=== PATIENT | female | born 1965 | race Caucasian/White ===

== ENCOUNTER 2018-08-07 14:05 | Outpatient (CLI) | payer OTHER | END 2018-08-07 14:06 | disposition home or self-care (01) | LOC: BICMAMMO 14:05 | PROVIDERS: ATTEND Family Medicine | DX: Z12.31 Encounter for screening mammogram for malignant neoplasm of breast (principal); R92.1 Mammographic calcification found on diagnostic imaging of breast; Z80.3 Family history of malignant neoplasm of breast | CPT/HCPCS: 77063; 77067 ==

== ENCOUNTER 2019-08-14 10:01 | Outpatient (CLI) | payer OTHER ==
--- NOTE | 2019-08-14 15:13 | MMO ---
Bilateral MAMMO Bilat Screen [facility]. CLINICAL HISTORY: Patient is 53 years old and is seen for screening. The patient has the following family history of breast cancer: paternal aunt. The patient has no personal history of cancer. VIEWS: The views performed were: bilateral craniocaudal with tomosynthesis and bilateral mediolateral oblique with tomosynthesis. FILMS COMPARED: The present examination has been compared to prior imaging studies performed at [facility] on 08/07/2018, and at [facility] on 06/11/2015, 06/22/2016 and 07/26/2017. This study has been interpreted with the assistance of computer-aided detection. MAMMOGRAM FINDINGS: There are scattered fibroglandular densities. Benign calcifications are noted bilaterally. There are no suspicious masses, suspicious calcifications, or new areas of architectural distortion. IMPRESSION: THERE IS NO MAMMOGRAPHIC EVIDENCE OF MALIGNANCY. A ROUTINE FOLLOW-UP MAMMOGRAM IN 1 YEAR IS RECOMMENDED. THE RESULTS OF THIS EXAM WERE SENT TO THE PATIENT. ACR BI-RADS Category 2 - Benign finding MAMMOGRAPHY NOTE: 1. A negative mammogram report should not delay a biopsy if a dominant of clinically suspicious mass is present. 2. Approximately 10% to 15% of breast cancers are not detected by mammography. 3. Adenosis and dense breasts may obscure an underlying neoplasm. Reported by: EDWIN GARCIA MD Electonically Signed: [id number]
== END 2019-08-14 10:02 | disposition home or self-care (01) ==
LOC: BICMAMMO 10:01
PROVIDERS: ATTEND Family Medicine
DX: Z12.31 Encounter for screening mammogram for malignant neoplasm of breast (principal); Z80.3 Family history of malignant neoplasm of breast
CPT/HCPCS: 77063; 77067

== ENCOUNTER 2020-08-31 09:12 | Outpatient (CLI) | payer OTHER ==
--- NOTE | 2020-08-31 09:54 | MMO ---
Bilateral MAMMO Bilat Screen [facility]. CLINICAL HISTORY: Patient is 54 years old and is seen for screening. The patient has the following family history of breast cancer: paternal aunt, at age 52. The patient has no personal history of cancer. VIEWS: The views performed were: bilateral craniocaudal with tomosynthesis and bilateral mediolateral oblique with tomosynthesis. FILMS COMPARED: The present examination has been compared to prior imaging studies performed at [facility] on 08/07/2018 and 08/14/2019, and at [facility] on 06/22/2016 and 07/26/2017. This study has been interpreted with the assistance of computer-aided detection. MAMMOGRAM FINDINGS: There are scattered fibroglandular densities. Benign calcifications are noted bilaterally. There are no suspicious masses, suspicious calcifications, or new areas of architectural distortion. IMPRESSION: THERE IS NO MAMMOGRAPHIC EVIDENCE OF MALIGNANCY. A ROUTINE FOLLOW-UP MAMMOGRAM IN 1 YEAR IS RECOMMENDED. THE RESULTS OF THIS EXAM WERE SENT TO THE PATIENT. ACR BI-RADS Category 2 - Benign finding MAMMOGRAPHY NOTE: 1. A negative mammogram report should not delay a biopsy if a dominant of clinically suspicious mass is present. 2. Approximately 10% to 15% of breast cancers are not detected by mammography. 3. Adenosis and dense breasts may obscure an underlying neoplasm. Reported by: EDWIN GARCIA MD Electonically Signed: [id number]
== END 2020-08-31 09:13 | disposition home or self-care (01) ==
LOC: BICMAMMO 09:12
PROVIDERS: ATTEND Family Medicine
DX: Z12.31 Encounter for screening mammogram for malignant neoplasm of breast (principal); Z80.3 Family history of malignant neoplasm of breast
CPT/HCPCS: 77063; 77067

== ENCOUNTER 2021-09-17 09:07 | Outpatient (CLI) | payer OTHER | END 2021-09-17 09:08 | disposition home or self-care (01) | LOC: BICMAMMO 09:07 | PROVIDERS: ATTEND Family Medicine | DX: Z12.31 Encounter for screening mammogram for malignant neoplasm of breast (principal); Z80.3 Family history of malignant neoplasm of breast | CPT/HCPCS: 77063; 77067 ==

== ENCOUNTER 2021-11-17 08:42 | Outpatient (CLI) | payer OTHER | END 2021-11-17 08:43 | disposition home or self-care (01) | LOC: MRI 08:42 | PROVIDERS: ATTEND Orthopaedic Surgery | DX: M75.101 Unspecified rotator cuff tear or rupture of right shoulder, not specified as traumatic (principal); M75.31 Calcific tendinitis of right shoulder ==

== ENCOUNTER 2022-09-19 08:03 | Outpatient (CLI) | payer BC | END 2022-09-19 08:04 | disposition home or self-care (01) | LOC: BICMAMMO 08:03 | PROVIDERS: ATTEND Family Medicine | DX: Z12.31 Encounter for screening mammogram for malignant neoplasm of breast (principal); Z80.3 Family history of malignant neoplasm of breast | CPT/HCPCS: 77063; 77067 ==

== ENCOUNTER 2022-12-07 12:42 | Outpatient (CLI) | payer BC ==
[2022-12-07 14:03] LABS: ALT (SGPT) 34 U/L (8-55); AST (SGOT) 22 U/L (5-34); Albumin 4.3 g/dL (3.5-5.0); Alkaline Phosphatase 101 U/L (40-110); Anion Gap 15 mmol/L (10-20); BUN (Urea Nitrogen) 20 mg/dL (9.8-20.1); Bilirubin, Total 0.3 mg/dL (0.2-1.2); Calc. Creatinine Clearance 0 mL/min (70-130); Calcium 10.2 mg/dL (7.8-10.44); Carbon Dioxide 25 mmol/L (22-29); Chloride 104 mmol/L (98-107); Estimated GFR 100; Globulin 2.6 g/dL (2.4-3.5); Glucose 160 mg/dL (70-105); Potassium 4.9 mmol/L (3.5-5.1); Protein, Total 6.9 g/dL (6.0-8.3); Sodium 139 mmol/L (136-145)
== END 2022-12-07 12:43 | disposition home or self-care (01) ==
LOC: LABBT 12:42
PROVIDERS: ATTEND Internal Medicine Cardiovascular Disease
DX: Z01.812 Encounter for preprocedural laboratory examination (principal); R07.9 Chest pain, unspecified
CPT/HCPCS: 80053

== ENCOUNTER 2022-12-09 08:05 | Day surgery (SDC) | payer BC ==
[2022-12-08 10:20] VITALS: BMI 39.1
[2022-12-09] MEDS ORDERED: Lidocaine 1% PF 5 ML VIAL ONE (08:59)
[2022-12-09] MEDS ORDERED: Nitroglycerin 100MG/250ML BOT 250 ML ONE (09:18)
[2022-12-09] MEDS ORDERED: Heparin 10,000 UNITS/ 10 ML VIAL ONE (09:18)
[2022-12-09] MEDS ORDERED: Verapamil 5 MG/2 ML VIAL ONE (09:18)
[2022-12-09] MEDS ORDERED: Adenosine 6 MG/2 ML VIAL ONE (09:18)
[2022-12-09 09:21] LABS: #Lymphocytes 1.5 thou/uL (1.20-3.40); #Monocytes 0.7 thou/uL (0.11-0.59); #Neutrophils 13.9 thou/uL (1.40-6.50); %Eosinophils 0.2 % (0.0-10.0); %Lymphocytes 9.3 % (21.0-51.0); %Monocytes 4.4 % (0.0-10.0); %Neutrophils 86.1 % (42.0-75.0); Hemoglobin 15.5 g/dL (12.0-16.0); Mean Corpuscular HGB CONC 31.9 g/dL (32.0-36.0); Mean Corpuscular Volume 87.6 fl (78.0-98.0); Mean Platelet Volume 7.9 fL (7.4-10.4); Platelet Count 342 10x3/uL (130-400); RBC Distribution Width 12.7 % (11.5-14.5); Red Blood Cell (RBC) Count 5.55 mill/uL (4.20-5.40); White Blood Cell (WBC) Count 16.2 10x3/uL (4.8-10.8)
[2022-12-09 09:43] LABS: Cardiac Risk 3.1 (Less than 4.5)
[2022-12-09] MEDS ORDERED: FENTANYL 50 MCG/ML 1 ML VIAL ONE (09:48)
[2022-12-09] MEDS ORDERED: Midazolam HCl 2 mg/2 ml Vial ONE (09:48)
== END 2022-12-09 12:55 | disposition home or self-care (01) ==
LOC: SDC 08:05
PROVIDERS: ATTEND Internal Medicine Cardiovascular Disease
PROC: B2111ZZ Fluoroscopy of Multiple Coronary Arteries using Low Osmolar Contrast (ICD-10-PCS; principal; 2022-12-09)
PROC: 4A023N7 Measurement of Cardiac Sampling and Pressure, Left Heart, Percutaneous Approach (ICD-10-PCS; principal; 2022-12-09)
DX: I25.10 Atherosclerotic heart disease of native coronary artery without angina pectoris (principal); Q24.5 Malformation of coronary vessels; I47.1 Supraventricular tachycardia; E04.1 Nontoxic single thyroid nodule; E11.9 Type 2 diabetes mellitus without complications; E78.00 Pure hypercholesterolemia, unspecified; I10 Essential (primary) hypertension; E66.9 Obesity, unspecified; Z68.39 Body mass index [BMI] 39.0-39.9, adult; Z79.52 Long term (current) use of systemic steroids; Z79.82 Long term (current) use of aspirin; Z79.84 Long term (current) use of oral hypoglycemic drugs; Z79.899 Other long term (current) drug therapy; Z88.8 Allergy status to other drugs, medicaments and biological substances; Z91.041 Radiographic dye allergy status
CPT/HCPCS: 36415; 80061; 93458; 99152; 99153; C1769; C1894; J0153; J1644; J2250; J3010

== ENCOUNTER 2022-12-29 07:43 | Outpatient (CLI) | payer BC | END 2022-12-29 07:44 | disposition home or self-care (01) | LOC: BICULT 07:43 | PROVIDERS: ATTEND Otolaryngology Plastic Surgery within the Head & Neck | DX: E07.9 Disorder of thyroid, unspecified (principal); E04.2 Nontoxic multinodular goiter | CPT/HCPCS: 76536 ==

== ENCOUNTER 2023-07-14 05:08 | Emergency (ER) | payer BC ==
[2023-07-14 05:48] LABS: #Eosinphils 0.1 thou/uL (0.0-0.7); #Monocytes 0.7 thou/uL (0.11-0.59); #Neutrophils 6.6 thou/uL (1.40-6.50); %Basophils 0.4 % (0.0-1.0); %Lymphocytes 23.6 % (21.0-51.0); %Monocytes 7.2 % (0.0-10.0); %Neutrophils 67.2 % (42.0-75.0); Hematocrit 44.8 % (36.0-47.0); Hemoglobin 14.7 g/dL (12.0-16.0); Mean Corpuscular HGB CONC 32.8 g/dL (32.0-36.0); Mean Corpuscular Hemoglobin 29.8 pg (27.0-31.0); Mean Corpuscular Volume 90.9 fl (78.0-98.0); Mean Platelet Volume 9.7 fL (7.4-10.4); Platelet Count 331 10x3/uL (130-400); RBC Distribution Width 13.7 % (11.5-14.5); Red Blood Cell (RBC) Count 4.93 mill/uL (4.20-5.40); White Blood Cell (WBC) Count 9.9 10x3/uL (4.8-10.8)
[2023-07-14] MEDS ORDERED: fentaNYL 50 mcg/mL 1 mL Vial ONE (05:57)
[2023-07-14] MEDS ORDERED: Ketorolac Tromethamine 30 MG/ML VIAL ONE (05:57)
[2023-07-14] MEDS ORDERED: Dexamethasone 10 MG/ML VIAL ONE (05:57)
[2023-07-14] MEDS ORDERED: LORazepam 2 MG/ML SYR.(CARPUJECT) ONE (05:57)
[2023-07-14 06:28] LABS: ALT (SGPT) 29 U/L (8-55); AST (SGOT) 22 U/L (5-34); Albumin 3.9 g/dL (3.5-5.0); Alkaline Phosphatase 90 U/L (40-110); Anion Gap 15 mmol/L (10-20); BUN (Urea Nitrogen) 27 mg/dL (9.8-20.1); Bilirubin, Total 0.3 mg/dL (0.2-1.2); Calc. Creatinine Clearance 0 mL/min (70-130); Calcium 9.1 mg/dL (7.8-10.44); Carbon Dioxide 24 mmol/L (22-29); Chloride 103 mmol/L (98-107); Estimated GFR 101; Globulin 2.6 g/dL (2.4-3.5); Glucose 126 mg/dL (70-105); Potassium 5.2 mmol/L (3.5-5.1); Protein, Total 6.5 g/dL (6.0-8.3); Sodium 137 mmol/L (136-145)
[2023-07-14 06:42] LABS: Troponin I Less than 0.010 ng/mL (< 0.028)
== END 2023-07-14 09:58 | disposition home or self-care (01) ==
LOC: ERS 05:08
DX: M54.12 Radiculopathy, cervical region (principal); E11.9 Type 2 diabetes mellitus without complications; I10 Essential (primary) hypertension; Z79.899 Other long term (current) drug therapy; Z79.84 Long term (current) use of oral hypoglycemic drugs
CPT/HCPCS: 36415; 71045; 80053; 84484; 85025; 93005; 96374; 96375; J1100; J1885; J2060; J3010

== ENCOUNTER 2023-10-13 09:34 | Outpatient (CLI) | payer BC | END 2023-10-13 09:35 | disposition home or self-care (01) | LOC: BICMAMMO 09:34 | PROVIDERS: ATTEND Family Medicine | DX: Z12.31 Encounter for screening mammogram for malignant neoplasm of breast (principal) | CPT/HCPCS: 77063; 77067 ==

== ENCOUNTER 2024-10-15 09:07 | Outpatient (CLI) | payer BC | END 2024-10-15 09:08 | disposition home or self-care (01) | LOC: BICMAMMO 09:07 | PROVIDERS: ATTEND Family Medicine | DX: Z12.31 Encounter for screening mammogram for malignant neoplasm of breast (principal); Z80.3 Family history of malignant neoplasm of breast | CPT/HCPCS: 77063; 77067 ==

== ENCOUNTER 2025-06-26 10:09 | Outpatient (CLI) | payer BC | END 2025-06-26 10:10 | disposition home or self-care (01) | LOC: ULT 10:09 | PROVIDERS: ATTEND Family Medicine | DX: E04.2 Nontoxic multinodular goiter (principal); R09.89 Other specified symptoms and signs involving the circulatory and respiratory systems | CPT/HCPCS: 76536; 93922 ==

== ENCOUNTER 2025-07-08 01:13 | Emergency (ER) | payer BC ==
[2025-07-08] MEDS ORDERED: Gabapentin 100 MG CAP ONE (02:49)
[2025-07-08] MEDS ORDERED: Ketorolac Tromethamine 30 MG (1 mL) VIAL ONE (03:34)
== END 2025-07-08 03:40 | disposition home or self-care (01) ==
LOC: ERS 01:13
DX: M25.571 Pain in right ankle and joints of right foot (principal); E11.9 Type 2 diabetes mellitus without complications; I10 Essential (primary) hypertension
CPT/HCPCS: 96372; 99283; J1885

== ENCOUNTER 2025-09-03 10:36 | Outpatient (CLI) | payer BC | END 2025-09-03 10:37 | disposition home or self-care (01) | LOC: RAD 10:36 | PROVIDERS: ATTEND Nurse Practitioner Family | DX: E11.621 Type 2 diabetes mellitus with foot ulcer (principal); L97.519 Non-pressure chronic ulcer of other part of right foot with unspecified severity | CPT/HCPCS: 71046 ==

== ENCOUNTER 2025-10-16 08:06 | Outpatient (CLI) | payer BC | END 2025-10-16 08:07 | disposition home or self-care (01) | LOC: BICMAMMO 08:06 | PROVIDERS: ATTEND Family Medicine | DX: Z12.31 Encounter for screening mammogram for malignant neoplasm of breast (principal); Z80.3 Family history of malignant neoplasm of breast | CPT/HCPCS: 77063; 77067 ==